=== PATIENT | female | born 1945 | race Caucasian/White ===

== ENCOUNTER → 2018-06-05 07:36 | Outpatient (CLI) | payer MEDICARE, OTHER, SELFPAY ==
--- NOTE | 2018-06-05 | DI.MRI.S_ITS ---
PROCEDURE: MR CERVICAL SPINE WO CON INDICATIONS: Cervicalgia TECHNIQUE: Noncontrast sagittal T1 spin echo and T2 fast spin echo, sagittal STIR, foraminal oblique sagittal T2 fast spin echo, and axial gradient echo or T2 fast spin echo through the cervical spine. COMPARISON: [facility], MR, C-SPINE WITHOUT CONTRAST, 04/15/2014, 7:32. [facility], CT, SOFT TISSUE NECK W CONTRAST, 03/16/2016, 8:15. [facility], CR, CERVICAL SPINE 2 OR 3 VIEWS, 10/05/2014, 9:27. FINDINGS: Image quality: Diagnostic, with note made of motion artifact. Alignment and Curvature: There is normal bony alignment. Bone Marrow: Marrow demonstrates normal overall signal. Spinal Cord: Visualized spinal cord has normal size and signal. No cerebellar tonsillar herniation. Paraspinous Soft Tissues: No paravertebral masses. Prevertebral soft tissues are normal in thickness. No frankly enlarged lymph nodes are seen, although there is a borderline prominent left level IIA lymph node measuring 6 x 11 mm, as on series 5 image 16. C2-C3: The disc height is well-preserved. Loss of disc signal is seen at this level. No significant neural foraminal or central canal narrowing can be seen. C3-C4: Mild loss of disc height is seen. Loss of disc signal is seen. Mild generalized disc bulge is seen. [id number] facet hypertrophy is seen. There is moderate to severe left-sided and mild right-sided neural foraminal narrowing seen. No significant central canal narrowing is seen. When comparison is made with the prior examination, these findings are similar. C4-C5: Mild loss of disc height is seen. Loss of disc signal is seen. Moderate generalized disc osteophyte complex is seen. [id number] facet hypertrophy is seen. There is mild to moderate right-sided and moderate to severe left-sided neural foraminal narrowing seen. Mild to moderate central canal narrowing is seen at this level. Mild central canal narrowing is seen. These imaging findings have progressed compared to the prior study. C5-C6: Moderate loss of disc height is seen. Loss of disc signal is seen. Moderate generalized disc osteophyte complex is seen. Uncovertebral joint hypertrophy is seen at this level. Mild to moderate facet hypertrophy is seen. Moderate to severe bilateral neural foraminal narrowing is seen, left worse than right. At least moderate central canal narrowing is seen, with associated mass effect upon the ventral spinal cord. These imaging findings have progressed compared to the prior study. C6-C7: Postoperative changes are seen anteriorly at this level, with associated susceptibility artifact. Moderate disc osteophyte complex is seen, which is eccentric to the right side. There is moderate to severe right-sided and mild to moderate left-sided neural foraminal narrowing seen. Minimal central canal narrowing can be seen. This level is overall improved compared to the prior MRI. C7-T1: No significant abnormality is seen. IMPRESSION: Since the prior MRI, postoperative change as taken place anteriorly at C6-C7. This level is improved compared to the preoperative MRI examination. Progression of degenerative change at C4-C5 and C5-C6 compared to 2015. Dictated by: Raymond Sherman M.D. on 06/05/2018 at 8:23 Approved by: Raymond Sherman M.D. on 06/05/2018 at 8:30
== END ==
PROVIDERS: Family Provider Family Medicine; PCP Family Medicine; Visit Provider Psychiatry & Neurology Neurology
DX: M54.2 Cervicalgia (principal); M47.812 Spondylosis without myelopathy or radiculopathy, cervical region; M48.02 Spinal stenosis, cervical region
CPT/HCPCS: 72141

== ENCOUNTER → 2019-05-05 11:39 | Outpatient (CLI) | payer MEDICARE, OTHER, SELFPAY ==
--- NOTE | 2019-05-05 | DI.MG.S_ITS ---
BILATERAL DIGITAL SCREENING MAMMOGRAM 3D/2D WITH CAD: 05/05/2019 CLINICAL: Routine screening. Comparison is made to exams dated: 06/14/2016 mammogram, 04/06/2013 mammogram, and 02/05/2011 mammogram - [facility]. The tissue of both breasts is extremely dense, which lowers the sensitivity of mammography. Current study was also evaluated with a Computer Aided Detection (CAD) system. No significant masses, calcifications, or other findings are seen in either breast. There has been no significant interval change. IMPRESSION: NEGATIVE There is no mammographic evidence of malignancy. A 1 year screening mammogram is recommended. This exam was interpreted at Station ID: [id number]. NOTE: For mammograms, a report in lay terms will be sent to the patient. Approximately 15% of breast malignancies will not be visualized mammographically. In the management of a palpable breast mass, a negative mammogram must not discourage biopsy of a clinically suspicious lesion. Electronically Signed By: Lyric [email or web address]/[email or web address]:05/05/2019 12:18:17 letter sent: Normal Exam ACR BI-RADS Category 1: Negative [id number]
== END ==
PROVIDERS: Family Provider Family Medicine; PCP Family Medicine; Referring Provider Family Medicine; Visit Provider Family Medicine
DX: Z12.31 Encounter for screening mammogram for malignant neoplasm of breast (principal)
CPT/HCPCS: 77063; 77067

== ENCOUNTER → 2019-10-05 11:53 | Outpatient (CLI) | payer MEDICARE, OTHER, SELFPAY ==
--- NOTE | 2019-10-05 | DI.RAD.S_ITS ---
PROCEDURE: XR LUMBAR SPINE 2-3V INDICATIONS: LUMBAR RADICULOPATHY TECHNIQUE: 3 views of the lumbar spine were acquired. COMPARISON: None. FINDINGS: No fracture. Grade 1 anterolisthesis of L4 on L5. Multilevel degenerative endplate sclerosis and spurring. Diffuse facet arthropathy. Dextroscoliosis centered at the T12 level. Mild multilevel narrowing of the lumbar disc spaces. IMPRESSION: Grade 1 anterolisthesis of L4 on L5. Mild lumbar spondylosis and facet arthropathy Dextroscoliosis Dictated by: Wellington Lorenzo M.D. on 10/05/2019 at 14:12 Approved by: Wellington Lorenzo M.D. on 10/05/2019 at 14:14
== END ==
PROVIDERS: Family Provider Family Medicine; PCP Family Medicine; Referring Provider Family Medicine; Visit Provider Family Medicine
DX: M43.16 Spondylolisthesis, lumbar region (principal); M47.26 Other spondylosis with radiculopathy, lumbar region; M41.84 Other forms of scoliosis, thoracic region
CPT/HCPCS: 72100

== ENCOUNTER → 2020-01-12 11:39 | Outpatient (CLI) | payer MEDICARE, OTHER, SELFPAY ==
--- NOTE | 2020-01-12 11:44 | DI.MRI.S_ITS ---
PROCEDURE: MR CERVICAL SPINE WO CON INDICATIONS: Cervicalgia TECHNIQUE: Noncontrast sagittal T1 spin echo and T2 fast spin echo, sagittal STIR, foraminal oblique sagittal T2 fast spin echo, and axial gradient echo or T2 fast spin echo through the cervical spine. COMPARISON: [facility], MR, C-SPINE WITHOUT CONTRAST, 04/15/2014, 7:32. [facility], CR, CERVICAL SPINE 2 OR 3 VIEWS, 10/05/2014, 9:27. FINDINGS: Image quality: Excellent. Alignment and Curvature: There is trace C3-C4 and C7-T1 anterolisthesis. Bones: Postsurgical changes compatible C6-C7 ACDF. Reactive endplate changes noted adjacent to the C5-C6 and C6-C7 discs. Spinal Cord: Visualized spinal cord has normal size and signal. No cerebellar tonsillar herniation. Paraspinous Soft Tissues: No paravertebral masses. Prevertebral soft tissues are normal in thickness. C2-C3: Loss of disc signal. Mild right and moderate left facet hypertrophy. No central stenosis. Mild left neural foraminal narrowing. No neural compression. C3-C4: Loss of disc signal and slight loss of disc height. Mild, diffuse disc bulge. Mild right and severe left facet hypertrophy. Mild narrowing of the central canal. Mild left uncovertebral joint hypertrophy. Mild right and moderate left neural foraminal narrowing. No neural compression. C4-C5: Loss of disc signal and height. Mild to moderate diffuse disc bulge. Moderate right and mild left facet hypertrophy. Mild bilateral uncovertebral joint hypertrophy. Mild narrowing of the central canal. Moderate bilateral neural foraminal narrowing. No neural compression. C5-C6: Loss of disc signal and height. Mild to moderate diffuse disc bulge. Mild bilateral facet hypertrophy. Moderate bilateral uncovertebral joint hypertrophy. Mild to moderate narrowing of the central canal. Moderate right and severe left neural foraminal narrowing with compression of the exiting left C6 nerve root. C6-C7: Status post discectomy and fusion. No central stenosis. Mild bilateral facet hypertrophy. Mild bilateral neural foraminal narrowing. No neural compression. C7-T1: Loss of disc signal. Minimal, diffuse disc bulge. No central stenosis. No neural foraminal narrowing. No neural compression. Mild bilateral facet hypertrophy. IMPRESSION: 1. Status post C6-C7 ACDF. 2. Multilevel degenerative disc disease. 3. Multilevel facet and uncovertebral arthropathy. 4. No significant central canal narrowing.. 5. Severe left C5-C6 neural foraminal narrowing with compression of the exiting left C6 nerve root. Dictated by: Sandra Farias MD, PhD on 01/12/2020 at 15:58 Approved by: Sandra Farias MD, PhD on 01/12/2020 at 16:27
== END ==
PROVIDERS: Family Provider Family Medicine; PCP Student in an Organized Health Care Education/Training Program; Referring Provider Psychiatry & Neurology Neurology; Visit Provider Psychiatry & Neurology Neurology
DX: M50.30 Other cervical disc degeneration, unspecified cervical region (principal); Z98.1 Arthrodesis status
CPT/HCPCS: 72141